=== PATIENT | male | born 2005 | race African-American/Black ===

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

== ENCOUNTER 2025-02-03 17:35 | Emergency (ER) | payer MEDICAID ==
[~2025-02-03] VITALS: Ht 170.2 cm; Wt 84.0 kg
[~2025-02-03 17:35] MED LIST: IBUP-2029 MT
[2025-02-03 17:36] VITALS: RESP 16; O2SAT 100
[2025-02-03] MEDS ORDERED: NALO4SPR BOTHNSTRLS (19:13)
[2025-02-03 19:37] VITALS: BP 115/59; PULSE 83; TEMP 36.7; O2SAT 98
== END 2025-02-03 19:40 | disposition home or self-care (01) ==
LOC: ER 17:35
DX: T40.2X1A Poisoning by other opioids, accidental (unintentional), initial encounter (principal); R51.9 Headache, unspecified; Z88.0 Allergy status to penicillin; X58.XXXA Exposure to other specified factors, initial encounter
CPT/HCPCS: 71045; 99284